=== PATIENT | female | born 1975 | race Caucasian/White ===

== ENCOUNTER 2020-11-05 07:00 | Inpatient (IN) ==
[~2020-11-05 07:00] MED LIST: *HR* Nalbuphine 10 MG/ML AMPUL IV PRN; Famotidine 20 MG/2 ML VIAL IVP PRN; Lidocaine 1% 20 ML MDV INFILT PRN; Metoclopramide 10 MG/2 ML VIAL IVP PRN; Naloxone 0.4 MG/ML INJ IVP PRN; Ondansetron 4 MG/2 ML VIAL IVP PRN
[2020-11-05] MEDS ORDERED: *HR* Labetalol 20 MG/4 ML SYRINGE IVP ONE ×5 (07:12→18:31)
[2020-11-05] MEDS ORDERED: Magnesium Sulf 20 gm/SW 500mL 20 GM/500 ML IV.SOLN IVC SCH (07:30)
[2020-11-05] MEDS ORDERED: Penicillin G Potassium 5,000,000 UNIT in 0.9 % Sodium Chloride Mini Bag 100 ML IVPB ONE (07:34)
[2020-11-05 07:38] LABS: Basophils # 0.1 K/mcL (0.0-0.2); Basophils % 0.8 %; Eosinophils # 0.1 K/mcL (0.0-0.6); Eosinophils % 0.4 %; Hematocrit 35.2 % (35.3-44.9); Hemoglobin 11.5 g/dL (11.5-15.4); Immature Granulocytes % 3.7 % (0-4); Lymphocytes # 1.4 K/mcL (0.6-4.6); Lymphocytes % 9.6 %; Mean Corpuscular HGB Conc 32.7 g/dL (31.6-35.5); Mean Corpuscular Hemoglobin 28.8 pg (28.0-33.3); Mean Platelet Volume 10.1 fL (9.4-12.4); Monocytes # 0.8 K/mcL (0.0-1.3); Monocytes % 5.9 %; Neutrophils # 11.3 K/mcL (1.6-8.9); Platelet Count 311 K/mcL (140-400); Red Cell Distribution Width 15.9 % (11.5-14.5); Segmented Neutrophils % 79.6 %; White Blood Count 14.2 K/mcL (4.3-11.1)
[2020-11-05] MEDS: Ringers Solution, Lactated 1,000 ML IVC SCH (08:20)
[2020-11-05 08:43] LABS: Amphetamine Screen,Urine Negative ng/mL (Cutoff=1000); Barbiturate Screen,Urine Negative ng/mL (Cutoff=200); Benzodiazepines Screen,Urine Negative ng/mL (Cutoff=200); Cannabinoid Screen,Urine Negative ng/mL (Cutoff = 50); Cocaine Screen,Urine Negative ng/mL (Cutoff= 300); Creatinine,Urine 23 mg/dL; Opiate Screen,Urine Negative ng/mL (Cutoff=300); Phencyclidine Screen,Urine Negative ng/mL (Cutoff=25); Protein/Creatinine Ratio,Urine 0.17 mg/mg (0.00-0.20)
[2020-11-05 11:12] LABS: Alanine Aminotransferase 16 Units/L (7-52); Aspartate Amino Transferase 18 Units/L (13-39); BUN/Creatinine Ratio 16 (6-26); Blood Urea Nitrogen 6 mg/dL (6-20); Lactate Dehydrogenase 144 Units/L (140-271); Uric Acid 4.5 mg/dL (2.3-7.6); eGFR For African Americans > 60 (> 60); eGFR For Non-African Americans > 60 (> 60)
[2020-11-05] MEDS ORDERED: Calcium Gluconate 1,000 MG/10 ML VIAL ONE (11:39)
[2020-11-05] MEDS: Penicillin G Potassium 2,500,000 UNIT/105 ML MLS IVPB SCH ×2 (12:20→16:43)
[2020-11-05] MEDS ORDERED: Acetaminophen 325 MG TABLET PO PRN ×2 (12:58→22:34)
[2020-11-05 14:23] LABS: Hepatitis B Surface Antigen Nonreactive (Nonreactive)
[2020-11-05] MEDS ORDERED: Oxytocin 20 units/ LR 1000 mL 20 UNIT/1,000 ML BAG IVC SCH ×2 (16:45→22:34)
[2020-11-05] MEDS ORDERED: D5% in 0.45% NACL 1,000 ML IVC SCH (17:45)
[2020-11-05] MEDS ORDERED: Sennosides 8.6 MG TABLET PO PRN (22:34)
[2020-11-05] MEDS ORDERED: Benzocaine/Menthol 56 GM AEROSOL SPRAY TP PRN (22:34)
[2020-11-05] MEDS ORDERED: *HR* HYDROcodone/Acet 5/325 mg TABLET PO PRN (22:34)
[2020-11-05] MEDS ORDERED: Lanolin 7 G OINT...G. TP PRN (22:34)
[2020-11-05 23:40] LABS: Alanine Aminotransferase 15 Units/L (7-52); Aspartate Amino Transferase 17 Units/L (13-39); BUN/Creatinine Ratio 17 (6-26); Blood Urea Nitrogen 7 mg/dL (6-20); Lactate Dehydrogenase 155 Units/L (140-271); Uric Acid 5.1 mg/dL (2.3-7.6); eGFR For African Americans > 60 (> 60); eGFR For Non-African Americans > 60 (> 60)
[2020-11-06] MEDS ORDERED: Ringers Solution, Lactated 1,000 ML ONE (04:16)
[2020-11-06] MEDS: Ringers Solution, Lactated 1,000 ML IVC SCH (04:18)
[2020-11-06 04:52] LABS: Basophils # 0.1 K/mcL (0.0-0.2); Basophils % 0.3 %; Eosinophils # 0.1 K/mcL (0.0-0.6); Eosinophils % 0.4 %; Hematocrit 28.1 % (35.3-44.9); Immature Granulocytes % 2.2 % (0-4); Lymphocytes # 1.3 K/mcL (0.6-4.6); Lymphocytes % 8.8 %; Mean Corpuscular HGB Conc 33.1 g/dL (31.6-35.5); Mean Corpuscular Hemoglobin 29.1 pg (28.0-33.3); Mean Corpuscular Volume 87.8 fL (83.0-100.0); Mean Platelet Volume 10.1 fL (9.4-12.4); Monocytes % 7.2 %; Neutrophils # 11.8 K/mcL (1.6-8.9); Platelet Count 283 K/mcL (140-400); Red Cell Distribution Width 15.8 % (11.5-14.5); Segmented Neutrophils % 81.1 %; White Blood Count 14.5 K/mcL (4.3-11.1)
[2020-11-06 04:56] LABS: Protein/Creatinine Ratio,Urine 5.27 mg/mg (0.00-0.20)
[2020-11-06 05:01] LABS: Hemoglobin 9.3 g/dL (11.5-15.4)
[2020-11-06 05:07] LABS: Aspartate Amino Transferase 16 Units/L (13-39); BUN/Creatinine Ratio 17 (6-26); Blood Urea Nitrogen 6 mg/dL (6-20); eGFR For African Americans > 60 (> 60); eGFR For Non-African Americans > 60 (> 60)
[2020-11-06] MEDS: Magnesium Sulf 20 gm/SW 500mL 20 GM/500 ML IV.SOLN IVC SCH ×2 (07:28→16:31)
[2020-11-06] MEDS: Ibuprofen 600 MG TABLET PO PRN ×2 (08:04→18:28)
[2020-11-06] MEDS: Prenatal Vit/FA 1 EACH TABLET PO SCH (08:05)
[2020-11-06] MEDS ORDERED: Ringers Solution, Lactated 500 ML ONE (16:23)
[2020-11-07 04:57] LABS: Basophils # 0.1 K/mcL (0.0-0.2); Basophils % 1.1 %; Eosinophils # 0.1 K/mcL (0.0-0.6); Eosinophils % 1.3 %; Hematocrit 28.7 % (35.3-44.9); Hemoglobin 9.2 g/dL (11.5-15.4); Immature Granulocytes % 4.7 % (0-4); Lymphocytes # 1.3 K/mcL (0.6-4.6); Lymphocytes % 13.9 %; Mean Corpuscular HGB Conc 32.1 g/dL (31.6-35.5); Mean Corpuscular Hemoglobin 28.7 pg (28.0-33.3); Mean Corpuscular Volume 89.4 fL (83.0-100.0); Monocytes # 0.6 K/mcL (0.0-1.3); Monocytes % 6.7 %; Neutrophils # 6.9 K/mcL (1.6-8.9); Platelet Count 297 K/mcL (140-400); Red Blood Count 3.21 M/mcL (3.82-4.97); Red Cell Distribution Width 16.4 % (11.5-14.5); Segmented Neutrophils % 72.3 %; White Blood Count 9.5 K/mcL (4.3-11.1)
[2020-11-07] MEDS: Prenatal Vit/FA 1 EACH TABLET PO SCH (07:52)
[2020-11-07 07:57] VITALS: BP 126/67
== END 2020-11-07 14:30 | disposition home or self-care (01) | DRG 807 ==
LOC: 1NENULAB → 1NENUOBS 22:33
PROVIDERS: ADMIT Advanced Practice Midwife; ATTEND Advanced Practice Midwife

== ENCOUNTER 2022-02-23 07:12 | Inpatient (IN) ==
[2022-02-23 07:42] LABS: Basophils % 0.2 %; Eosinophils % 0.2 %; Hematocrit 25.7 % (35.3-44.9); Hemoglobin 8.7 g/dL (11.5-15.4); Immature Granulocytes % 0.4 % (0-4); Lymphocytes # 0.5 K/mcL (0.6-4.6); Lymphocytes % 4.7 %; Mean Corpuscular HGB Conc 33.9 g/dL (31.6-35.5); Mean Corpuscular Hemoglobin 28.9 pg (28.0-33.3); Mean Corpuscular Volume 85.4 fL (83.0-100.0); Mean Platelet Volume 10.1 fL (9.4-12.4); Monocytes # 0.5 K/mcL (0.0-1.3); Monocytes % 4.5 %; Neutrophils # 9.7 K/mcL (1.6-8.9); Platelet Count 266 K/mcL (140-400); Red Blood Count 3.01 M/mcL (3.82-4.97); Red Cell Distribution Width 12.9 % (11.5-14.5); White Blood Count 10.8 K/mcL (4.3-11.1)
[2022-02-23] MEDS ORDERED: Doxycycline 100 MG in 0.9 % Sodium Chloride Mini Bag 100 ML IVPB ONE (10:18)
[2022-02-23] MEDS ORDERED: Ringers Solution, Lactated 1,000 ML IVC SCH (10:30)
[2022-02-23] MEDS ORDERED: Rho Immune Globulin 1,500 UNIT SYRINGE IM ONE (10:34)
[2022-02-23] MEDS ORDERED: Lidocaine HCL 4 ML Topical Solution (Laryng-O-Jet Kit Sterile Pak) TP ONE (10:39)
[2022-02-23] MEDS ORDERED: *HR* FentaNYL (PF) 100 MCG/2 ML VIAL ONE (10:40)
[2022-02-23] MEDS ORDERED: Ondansetron 4 MG/2 ML VIAL ONE (10:40)
[2022-02-23] MEDS ORDERED: *HR* Midazolam HCl 2 MG/2 ML VIAL ONE (10:40)
[2022-02-23] MEDS ORDERED: Lidocaine -MPF 2% 2 ML VIAL ONE (10:40)
[2022-02-23] MEDS ORDERED: *HR* Propofol 200 MG/20 ML VIAL IVP ONE (10:40)
[2022-02-23] MEDS ORDERED: *HR* Vasopressin 20 UNIT/ML VIAL ONE (10:52)
[2022-02-23] MEDS ORDERED: Silver Nitrate Applicator 1 STICK..EA. TP ONE (11:37)
[2022-02-23] MEDS ORDERED: Sugammadex Sodium 200 MG/2 ML VIAL IV ONE (11:38)
[2022-02-23] MEDS ORDERED: Naloxone 0.4 MG/ML INJ IVP PRN (12:56)
[2022-02-23] MEDS ORDERED: Ibuprofen 600 MG TABLET PO PRN (12:56)
[2022-02-23] MEDS: Ringers Solution, Lactated 1,000 ML IVC SCH ×2 (14:54→14:58)
[2022-02-23] MEDS ORDERED: 0.9 % Sodium Chloride 500 ML ONE (17:01)
[2022-02-23 20:26] VITALS: TEMP 98.7; O2SAT 99
[2022-02-23 20:35] VITALS: BP 113/63; PULSE 68
== END 2022-02-23 22:20 | disposition home or self-care (01) | DRG 770 ==
LOC: EMEROOARM 07:12 → 1NENUOBS 10:47
PROVIDERS: ADMIT Obstetrics & Gynecology; ATTEND Obstetrics & Gynecology